=== PATIENT | male | born 1990 | race African-American/Black ===

== ENCOUNTER 2017-07-22 17:46 | Emergency (ER) | payer OTHER ==
[~2017-07-22] VITALS: Ht 185.4 cm; Wt 111.6 kg
[2017-07-22 17:48] VITALS: BP 128/76; PULSE 68; RESP 18; TEMP 98.3; O2SAT 95
--- NOTE | 2017-07-22 18:23 | PD ---
HPI Chief Complaint: Wound/Suture/Staple Re-Check Time Seen by Provider: 17:56 Travel History International Travel<30 days: No Contact w/Intl Traveler<30days: No Traveled to known affect area: No History of Present Illness HPI 26-year-old right-hand dominant male presents to the ED for suture removal from the third and fourth digits of the left hand. Patient states that he injured himself approximate 6 weeks ago when he grabbed a knife. He states that tetanus immunization was updated and sutures were placed at [facility]. He states that he was instructed to return for suture removal but he moved to the [facility] and was noncompliant. He also states that he was noncompliant with follow-up with a hand surgeon. Since the accident he's been unable to flex the middle finger. He denies numbness, tingling, weakness, patient's or range of motion of the other digits. He states that he was told that he cut a tendon at the time of the accident. No treatment at home. PFSH Past Medical History Deep Vein Thrombosis: Yes Respiratory: Yes (PE) Social History Alcohol Use: Yes Tobacco Use: No Substance Use: Yes (MARIJUANA) Allergies-Medications (Allergen,Severity, Reaction): Coded Allergies: No Known Allergies (Unverified , 07/22/17) Reported Meds & Prescriptions Reported Meds & Active Scripts Active No Active Prescriptions or Reported Medications Review of Systems Except as stated in HPI: all other systems reviewed are Neg Physical Exam Narrative GENERAL: Well-nourished, well-developed patient. SKIN: Focused skin assessment warm/dry. There are [address] on the palmar aspect of both the third and fourth fingers of the left hand. They are scabbed over. No erythema, no edema, no warmth. HEAD: Normocephalic. EYES: No scleral icterus. No injection or drainage. NECK: Supple, trachea midline. No JVD or lymphadenopathy. CARDIOVASCULAR: Regular rate and rhythm without murmurs, gallops, or rubs. RESPIRATORY: Breath sounds equal bilaterally. No accessory muscle use. GASTROINTESTINAL: Abdomen soft, non-tender, nondistended. MUSCULOSKELETAL: No cyanosis, or edema. Focused left upper extremity exam: 2+ radial pulse. Patient is able to flex the DIP or PIP joint of the middle finger. Neurovascularly intact distally. Exam otherwise unremarkable. BACK: Nontender without obvious deformity. No CVA tenderness. Data Data Last Documented VS Vital Signs Date Time Temp Pulse Resp B/P (MAP) Pulse Ox O2 Delivery O2 Flow Rate FiO2 07/22/17 17:48 98.3 68 18 128/76 (93) 95 MDM Medical Decision Making Medical Screen Exam Complete: Yes Emergency Medical Condition: Yes Differential Diagnosis Laceration versus tendinous injury versus suture removal versus noncompliance versus other Narrative Course 26-year-old right-hand dominant male presents to the ED for suture removal from the third and fourth digits of the left hand. Sutures placed at [facility] 6 weeks ago after the patient states that he grabbed a knife. He' s been noncompliant with suture removal or follow-up with the hand surgeon secondary to transportation issues. Vitals reviewed. On physical exam there are 4 sutures each on the palmar aspect, base of the second and third fingers. No signs of infection. Patient is unable to flex at the PIP or DIP of the middle finger. Exam otherwise unremarkable. 8 sutures were removed without incident. Mandatory outpatient consult was placed with a hand surgeon. Patient is stable and discharged home. Diagnosis Primary Impression: Visit for suture removal Referrals: Roscoe Vuong III, MD Additional Instructions: A mandatory outpatient referral has been placed to the hand surgeon. You can expect a phone call from the hospital for the hand surgeons office in 7- 10 days. Return to the ED for any urgent or emergent medical condition. Scripts No Active Prescriptions or Reported Meds Disposition: 01 DISCHARGE HOME Condition: Stable Diya Fuentes Jul 22, 2017 18:23
== END 2017-07-22 18:40 | disposition home or self-care (01) ==
LOC: PHEFT 17:46
DX: Z48.02 Encounter for removal of sutures (principal)
CPT/HCPCS: 99281